=== PATIENT | male | born 1990 | race African-American/Black ===

== ENCOUNTER 2018-05-06 09:57 | Emergency (ER) | payer SELFPAY ==
[~2018-05-06] VITALS: Ht 175.3 cm; Wt 90.7 kg
[2018-05-06] MEDS ORDERED: NAPROXEN 500 MG TABLET PO STA (10:02)
[2018-05-06 10:04] VITALS: BP 173/101
--- NOTE | 2018-05-06 10:07 | PHYS DOC ---
Adult General Chief Complaint Chief Complaint: HAND PROBLEM HPI HPI Patient is a 27 year old female who presents with moderate pain along the right thumb that began yesterday, patient states he was walking and swinging his arms when he accidentally hit his right hand on a wall. Patient states the pain is worse on touching the area. Review of Systems Review of Systems Constitutional: Denies fever or chills [] Musculoskeletal: Reports right hand pain and pain along the right thumb] Integument: Denies rash or skin lesions [] Neurologic: Denies headache, focal weakness or sensory changes [] All other systems were reviewed and found to be within normal limits, except as documented in this note. Current Medications Current Medications Current Medications Medications (Trade) Dose Ordered Sig/Tamera Start Time Stop Time Status Last Admin Dose Admin Acetaminophen/ Hydrocodone Bitart (Lortab 5/325) 1 tab 1X ONCE 05/06/18 10:15 05/06/18 10:16 DC 05/06/18 10:17 1 TAB Naproxen (Naprosyn) 500 mg 1X STAT 05/06/18 10:02 05/06/18 10:06 DC 05/06/18 10:17 500 MG Allergies Allergies Allergies Coded Allergies Type Severity Reaction Last Updated Verified No Known Drug Allergies 05/06/18 No Physical Exam Physical Exam Constitutional: Well developed, well nourished, no acute distress, non-toxic appearance. [] Skin: Warm, dry, no erythema, no rash. [] Back: No tenderness, no CVA tenderness. [] Extremities: Right hand with no obvious deformity, moderate soft tissue swelling noted along the right thumb. Bruising also noted along the right thumb. Tenderness on palpation of the right thumb diffusely. No scaphoid tenderness. Full range of motion to the right hand and fingers. Adequate radial , medial, ulnar sensation to the right hand. +2 right radial pulse. Cap refill less than 2 seconds to the right hand Neurologic: Alert and oriented X 3, normal motor function, normal sensory function, no focal deficits noted. [] Psychologic: Affect normal, judgement normal, mood normal. [] Current Patient Data Vital Signs Vital Signs Date Time Temp Pulse Resp B/P (MAP) Pulse Ox O2 Delivery O2 Flow Rate FiO2 05/06/18 10:04 98.8 79 18 173/101 (125) 99 Room Air 98.8 EKG EKG [] Radiology/Procedures Radiology/Procedures []PROCEDURE: HAND RIGHT 3V EXAM: Right hand, 3 views. HISTORY: Trauma. COMPARISON: None. FINDINGS: Frontal, lateral and oblique views of the right hand are obtained. There is no fracture, dislocation or subluxation. There is radiodense foreign body. IMPRESSION: No acute osseous finding. Electronically signed by: Mera Xavier MD (05/06/2018 10:21 AM) [facility] DICTATED and SIGNED BY: MERA XAVIER MD DATE: 05/06/18 1020 Course & Med Decision Making Course & Med Decision Making Pertinent Labs and Imaging studies reviewed. (See chart for details) This is a 27-year-old male patient presenting to the ED today with right hand contusion after accidentally hitting his right hand on a wall yesterday. Right hand x-rays interpreted by radiologist are negative for any acute findings. Zheng bandage applied to the right hand by the care administrative tech, neurovascular exam is intact, ice elevation encouraged. Diclofenac for pain. Follow-up with orthopedic doctor in one week if pain continues. Dragon Disclaimer Dragon Disclaimer This electronic medical record was generated, in whole or in part, using a voice recognition dictation system. Departure Departure Impression: Primary Impression: Contusion of right hand Disposition: 01 HOME, SELF-CARE Condition: STABLE Referrals: PATTI JAY II, MD follow up in 1 week Patient Instructions: Contusion, [id number] Additional Instructions: You were evaluated in the emergency room for right hand contusion your right hand xrays are negative for any acute findings. Ice elevate the extremity. Wear the Zheng bandage provided as needed and tolerated. Take the prescribed medications as needed. Follow-up with the provided orthopedic doctor or your own doctor in 1-2 weeks if symptoms persist. Scripts Diclofenac Sodium (DICLOFENAC SODIUM) 50 Mg Tablet.dr 1 TAB PO BID, #60 TAB 1 Refill Prov: DONNIE MIRANDA APRN 05/06/18 Problem Qualifiers Primary Impression: Contusion of right hand Encounter type: initial encounter Qualified Codes: S60.221A - Contusion of right hand, initial encounter DONNIE MIRANDA APRN May 06, 2018 10:07
[2018-05-06] MEDS ORDERED: HYDROcodone/APAP 5/325MG 1 TAB TABLET PO ONE (10:15)
--- NOTE | 2018-05-06 10:23 | RAD ---
EXAM: Right hand, 3 views. HISTORY: Trauma. COMPARISON: None. FINDINGS: Frontal, lateral and oblique views of the right hand are obtained. There is no fracture, dislocation or subluxation. There is radiodense foreign body. IMPRESSION: No acute osseous finding. Electronically signed by: Altagracia Xavier MD (05/06/2018 10:21 AM) [facility]
[2018-05-06] MEDS ORDERED: DICL50TA4 PO (10:47)
== END 2018-05-06 10:50 | disposition home or self-care (01) ==
LOC: ER 09:57
DX: S60.011A Contusion of right thumb without damage to nail, initial encounter (principal); W22.01XA Walked into wall, initial encounter; Y93.01 Activity, walking, marching and hiking; Y92.89 Other specified places as the place of occurrence of the external cause; Y99.8 Other external cause status
CPT/HCPCS: 29125; 73130; 99284